=== PATIENT | male | born 1965 | race Caucasian/White ===

== ENCOUNTER 2023-07-23 10:28 | Day surgery (SDC) | payer BC, OTHER ==
[~2023-07-23] VITALS: Ht 182.9 cm; Wt 117.9 kg
[2023-07-23] MEDS ORDERED: LOSA50 (10:44)
[2023-07-23] MEDS ORDERED: DULO60 (10:44)
[2023-07-23] MEDS ORDERED: ZOCOR20 MG (10:45)
[2023-07-23] MEDS ORDERED: PROPRANOLOL HCL60 MG (10:45)
[2023-07-23] MEDS ORDERED: Lactated Ringer's 1,000 ML IV ONE (11:00)
[2023-07-23] MEDS ORDERED: propofoL 50 ML IV ONE (11:19)
[2023-07-23] MEDS ORDERED: FentaNYL Citrate 50 MCG/ML 2 ML Injection ONE (11:19)
[2023-07-23] MEDS ORDERED: Midazolam HCL 1 MG/ML 5MLVIAL ONE (11:19)
[2023-07-23 12:27] VITALS: BP 117/69
== END 2023-07-23 12:20 | disposition home or self-care (01) ==
LOC: ORSCSDS 10:28
PROVIDERS: Internal Medicine Gastroenterology
PROC: 0DBL8ZX Excision of Transverse Colon, Via Natural or Artificial Opening Endoscopic, Diagnostic (ICD-10-PCS; principal; 2023-07-23 11:30)
PROC: 0DBM8ZX Excision of Descending Colon, Via Natural or Artificial Opening Endoscopic, Diagnostic (ICD-10-PCS; principal; 2023-07-23 11:30)
DX: Z12.11 Encounter for screening for malignant neoplasm of colon (principal); Z86.010 Personal history of colon polyps; D12.3 Benign neoplasm of transverse colon; D12.4 Benign neoplasm of descending colon; K57.30 Diverticulosis of large intestine without perforation or abscess without bleeding; J44.9 Chronic obstructive pulmonary disease, unspecified; E78.5 Hyperlipidemia, unspecified; G47.33 Obstructive sleep apnea (adult) (pediatric); Z80.0 Family history of malignant neoplasm of digestive organs; F17.210 Nicotine dependence, cigarettes, uncomplicated; Z79.899 Other long term (current) drug therapy; E66.9 Obesity, unspecified; I10 Essential (primary) hypertension; Z68.36 Body mass index [BMI] 36.0-36.9, adult
CPT/HCPCS: 88305; J2250; J2704; J3010; J7120

== ENCOUNTER → 2025-01-13 | Outpatient (CLI) | payer BC, OTHER ==
[~2025-01-13] MED LIST: DULO60; LOSA50; PROPRANOLOL HCL60 MG; ZOCOR20 MG
[2025-01-13 10:54] LABS: BASOPHILS ABSOLUTE AUTO 0.03 K/mm3 (0.00-0.23); BASOPHILS PERCENT AUTO 1 % (0-2); EOSINOPHILS ABSOLUTE AUTO 0.11 K/mm3 (0.00-0.68); EOSINOPHILS PERCENT AUTO 2 % (0-6); Hematocrit 47.4 % (37.0-53.0); Hemoglobin 16.8 g/dL (13.5-17.5); IMMATURE GRAN ABSOLUTE AUTO 0.03 K/mm3 (0.00-0.10); IMMATURE GRAN PERCENT AUTO 1 % (0-1); LYMPHOCYTES ABSOLUTE AUTO 1.41 K/mm3 (0.84-5.20); LYMPHOCYTES PERCENT AUTO 21 % (21-46); MONOCYTES ABSOLUTE AUTO 0.50 K/mm3 (0.16-1.47); MONOCYTES PERCENT AUTO 8 % (4-13); Mean Corpuscular HGB Conc 35.4 g/dL (31.5-36.5); Mean Corpuscular Volume 93 fL (80-100); NEUTROPHILS ABSOLUTE AUTO 4.53 K/mm3 (1.96-9.15); NEUTROPHILS PERCENT AUTO 68 % (41-73); NRBC ABSOLUTE 0.00 K/mm3 (0.00-0.02); NRBC Auto 0.0 /100 WBC (0.0-0.2); Platelet Count 203 K/mm3 (150-400); RDW Coefficient Variation 13.6 % (11.7-14.2); RDW Standard Deviation 46.3 fL (35.1-46.3)
[2025-01-13 11:12] LABS: Alanine Aminotransfer (ALT/SGP 37.0 U/L (12-78); Albumin, Blood 3.8 g/dL (3.4-5.0); Albumin/Globulin Ratio 1.3 (0.8-1.8); Anion Gap 12.0 mmol/L (3-11); Aspartate Aminotrans (AST/SGOT 15.0 U/L (12-37); Bilirubin, Total 0.8 mg/dL (0.1-1.0); Blood Urea Nitrogen 12.0 mg/dL (8-24); CO2, Blood 30.0 mmol/L (21-32); Calcium, Blood 9.0 mg/dL (8.5-10.1); Chloride, Blood 104.0 mmol/L (98-108); Creatinine, Blood 0.7 mg/dL (0.60-1.20); Globulin, Blood 2.9 g/dL (2.2-4.0); Glucose, Blood 135.0 mg/dL (70-99); Potassium, Blood 4.1 mmol/L (3.5-5.5); Sodium, Blood 142.0 mmol/L (136-145); Total Protein, Blood 6.7 g/dL (6.4-8.2)
== END ==
LOC: LAB 10:50 → LAB SHORT 10:50
DX: R10.32 Left lower quadrant pain (principal)
CPT/HCPCS: 80053; 83690; 85025

== ENCOUNTER → 2025-02-04 | Outpatient (CLI) | payer BC, OTHER ==
[2025-02-08 06:42] LABS: CREATININE,URINE - PER 24H 1125 mg/d (800-2100); CREATININE,URINE - PER VOLUME 75 mg/dL; HOURS COLLECTED 24 hr; METANEPHRINE,UR - RATIO TO CRT 93 ug/g CRT (0-300); METANEPHRINE,URINE - PER 24H 105 ug/d (55-320); METANEPHRINE,URN - PER VOLUME 70 ug/L; NORMETANEPHRINE,U - PER VOLUME 228 ug/L; NORMETANEPHRINE,URN - PER 24H 342 ug/d (114-865); NORMETANEPHRINE,URN/CRT RATIO 304 ug/g CRT (0-400)
[2025-02-08 17:24] LABS: CREATININE, URINE - PER 24H 1125 mg/d (800-2100); CREATININE, URINE - PER VOLUME 75 mg/dL; HOURS COLLECTED 24 hr; VANILLYLMANDELIC ACID -PER 24H 2.0 mg/d (0.0-7.0); VANILLYLMANDELIC ACID -PER VOL 1.3 mg/L; VANILLYLMANDELIC ACID -RAT CRT 2 mg/gCR (0-6)
[2025-02-09 07:22] LABS: CREATININE,URINE - PER 24H 1125 mg/d (800-2100); CREATININE,URINE - PER VOLUME 75 mg/dL; DOPAMINE,URINE - PER 24H 114 ug/d (71-485); DOPAMINE,URINE - PER VOLUME 76 ug/L; DOPAMINE,URINE - RATIO TO CRT 101 ug/g CRT (0-250); EPINEPHRINE,URINE - PER 24H 3 ug/d (1-14); EPINEPHRINE,URINE - PER VOLUME 2 ug/L; EPINEPHRINE,URN - RATIO TO CRT 3 ug/g CRT (0-20); HOURS COLLECTED 24 hr; NOREPINEPHRINE,UR - PER VOLUME 33 ug/L; NOREPINEPHRINE,URINE - PER 24H 50 ug/d (14-120); NOREPINEPHRINE,URN/CRT RATIO 44 ug/g CRT (0-45)
== END ==
LOC: LAB 04:00 → LAB SHORT 04:00
PROVIDERS: Internal Medicine
DX: E27.9 Disorder of adrenal gland, unspecified (principal)
CPT/HCPCS: 81050; 82384; 82570; 83835; 84585